=== PATIENT | female | born 1995 | race Caucasian/White ===

== ENCOUNTER 2020-11-11 14:35 | Outpatient (CLI) | payer BC ==
[2020-11-11 15:15] VITALS: BP 131/79; PULSE 90; RESP 18; TEMP 97.5
--- NOTE | 2020-11-17 09:05 | P.MSEPDOC ---
Presenting Problems - Arrival Data Date of Arrival on Unit: 11/11/20 Time of Arrival on Unit: 14:20 Mode of Transport: Ambulatory - Complaint OB-Reason for Admission/Chief Complaint: Rule Out PROM Comment: pt states leaking fluid at 1310 today Medical History - Information : 1 Para: 0 Term: 0 : 0 Abortions: Spontaneous or Elective: 0 Number of Living Children: 0 - Gestational Age Gestational Age by FROILAN (wks/days): 34 Weeks and 6 Days Review of Systems - Review of Systems Constitutional: No problems Breast: No problems ENT: No problems Cardiovascular: No problems Respiratory: No problems Gastrointestinal: No problems Genitourinary: No problems Musculoskeletal: No problems Neurological: No problems Skin: No problems Vital Signs - Temperature Temperature: 97.5 F Temperature Source: Temporal Artery Scan - Pulse Right Brachial Pulse Rate: 90 Pulse Assessment Method: Automatic Cuff - Respirations Respiratory Rate: 18 Oxygen Delivery Method: Room Air O2 Sat by Pulse Oximetry: 98 - Blood Pressure Right Arm Blood Pressure: 131/79 Blood Pressure Mean: 96 Blood Pressure Source: Automatic Cuff Medical Screen Scoring - Cervical Exam Dilation (cm): 0 Effacement (%): 0 Station: -3 Membranes: Intact - Uterine Contractions Frequency From (mins): 0 - Assessment - Baby A Baseline FHR: 120 Heart Rate - NICHD Category: Category I (Normal) Physician Notification - Physician Notified Physician Notified Date: 11/11/20 Physician Notified Time: 14:50 Physician: Kenya Pak Order Received: Yes - Notification Comment Comment: discharge with instruction Maternal Triage Index - Maternal Triage Index Presenting for scheduled procedure w/no complaint: No - Stat/Priority 1 Stat Priority 1: No - Urgent/Priority 2 Urgent Priority 2: No - Prompt/Priority 3 Prompt Priority 3: Yes Criteria Met for Priority 3: 34 6/7 complaint of leaking fluid Disposition - Disposition OB Disposition: Physician follow up in office, Triage, Discharge to home, Written follow up instructions reviewed Discharge Date: 11/11/20 Discharge Time: 15:00 I agree with the RN Medical Screening Exam: Yes Case reviewed; plan agreed upon as documented in EMR&OBIX.: Yes Comments: Patient was not seen or examined by me Diagnosis: FALSE LABOR BEFORE 37 COMPLETED WEEKS OF GEST, THIRD TRI
== END 2020-11-11 15:00 | disposition home or self-care (01) ==
LOC: FBPOP 14:35
PROVIDERS: ATTEND Obstetrics & Gynecology
DX: O47.03 False labor before 37 completed weeks of gestation, third trimester (principal); Z3A.34 34 weeks gestation of pregnancy
CPT/HCPCS: 59025; 84112; 99213

== ENCOUNTER 2020-12-18 06:05 | Inpatient (IN) | payer BC, OTHER ==
[2020-12-18] MEDS ORDERED: TERBUTALINE 1 MG/ML VIAL SQ PRN (06:17)
[2020-12-18] MEDS ORDERED: OXYTOCIN 10 UNIT/ML 1 ML VIAL IM PRN (06:17)
[2020-12-18] MEDS ORDERED: CARBOPROST TROMETHAMINE 250 MCG/ML 1 ML AMP IM PRN (06:17)
[2020-12-18] MEDS ORDERED: LIDOCAINE 0.5% (PF) 5 MG/ML (50 ML SDV) SQ PRN (06:17)
[2020-12-18] MEDS ORDERED: METHYLERGONOVINE 0.2 MG/ML 1 ML AMP IM PRN (06:17)
[2020-12-18] MEDS: OXYTOCIN 30 UNITS/500 ML NS 30 UNIT in SALINE 1 500ML.BAG IV SCH ×2 (06:32→23:32)
[2020-12-18] MEDS: LACTATED RINGERS 1,000 ML IV SCH ×3 (06:32→23:31)
[2020-12-18 07:12] LABS: Basophils # (A) 0.1 k/uL (0-0.2); Basophils % (A) 1 %; Eosinophils # (A) 0.2 k/uL (0-0.7); Eosinophils % (A) 2 %; HCT 37.8 % (34.0-46.0); Lymphocytes % (A) 20 %; MCH 34.3 pg (25.0-35.0); MCHC 34.2 g/dL (31.0-37.0); MCV 100.1 fL (80.0-100.0); Macrocytosis Slight; Mean Platelet Volume 9.1; Monocytes # (A) 0.6 k/uL (0-1.0); Monocytes % (A) 6 %; Neutrophils # (A) 7.1 k/uL (1.3-7.7); Neutrophils % (A) 70 %; Platelet Count 215 k/uL (150-450); RBC 3.78 m/uL (3.80-5.40); RDW 14.2 % (11.5-15.5); WBC 10.2 k/uL (3.8-10.6)
[2020-12-18] MEDS ORDERED: fentaNYL (PF) 50 MCG/ML 5 ML AMP ONE (09:24)
[2020-12-18] MEDS ORDERED: SODIUM CHLORIDE 0.9% 100 ML BAG ONE (09:24)
[2020-12-18] MEDS ORDERED: ROPIVACAINE 5MG/ML 20ML VIAL ONE (09:24)
--- NOTE | 2020-12-18 12:01 | P.HPOB ---
History of Present Illness H&P Date: 12/18/20 Chief Complaint: Here for elective induction of labor This is a 25-year-old female 1 para 0 EDC 12/17/2020 at 40 and one sevenths weeks' gestation who presents this morning for induction of labor with favorable cervix. She is actually having spontaneous contractions. Fetus is been active throughout the . She denies fluid leakage or vaginal bleeding. Past medical history is essentially negative. Past surgical history wisdom teeth extracted. Current medications vitamins daily, baby aspirin daily. ALLERGIES none known. Family history significant for hypertension heart disease and ovarian cancer. Social history patient is never been a smoker, she is , she denies alcohol or drug use. 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 Could be strep cultures, hepatitis B surface antigen, VDRL testing, Pap smear, urine culture, HIV testing, group B strep cultures all negative. One-hour Glucola 92. On exam patient is 5 foot 6 inches, 193 pounds, blood pressure 124/85 on admission, vital signs are stable and she is afebrile. Cervix at time of this dictation is 6 cm dilated, 80% effaced, -1 station, vertex presentation. Artificial amniorrhexis earlier today revealed clear fluid. heart rate is consistent with reactive NST. Contractions are current every 2-3 minutes apart, oxytocin at 15 milliunits, epidural placed, patient comfortable. Impression: 40 and one sevenths weeks intrauterine , here for induction of labor, all signs reassuring. Plan: Continue close maternal and surveillance was an as needed. Anticipate normal spontaneous vaginal delivery. Review of Systems Constitutional: Reports as per HPI Past Medical History History of Any Multi-Drug Resistant Organisms: None Reported Additional Past Surgical History / Comment(s): wisdom teeth removal Past Anesthesia/Blood Transfusion Reactions: No Reported Reaction Smoking Status: Never smoker Medications and Allergies Home Medications Medication Instructions Recorded Confirmed Type Aspirin [Children's Aspirin] 81 mg PO DAILY 11/11/20 12/18/20 History Pnv No.95/Ferrous Fum/Folic AC 1 each PO DAILY 11/11/20 12/18/20 History [ Multivitamin Tablet] Allergies Allergy/AdvReac Type Severity Reaction Status Date / Time Latex, Natural Rubber Allergy Rash/Hives Verified 11/11/20 14:42 Exam Vital Signs Temp Pulse Resp BP Pulse Ox 12/18/20 07:12 97.6 F 89 16 134/93 99 Intake and Output 12/17/20 12/18/20 12/18/20 22:59 06:59 14:59 Other: Weight 87.543 kg 87.543 kg See dictation under HPI please Results Result Diagrams: 12/18/20 06:25 Abnormal Lab Results - Last 24 Hours (Table) 12/18/20 Range/Units 06:25 RBC 3.78 L (3.80-5.40) m/uL MCV 100.1 H (80.0-100.0) fL Assessment and Plan Assessment: 40 and one sevenths weeks intrauterine , here for induction of labor, in active labor. All signs reassuring. Plan: Continue close maternal and surveillance. Continue oxytocin per protocol. Epidural placed, patient comfortable. Anticipate normal spontaneous vaginal delivery. Time with Patient: Less than 30
[2020-12-18] MEDS ORDERED: ACETAMINOPHEN 40 MG/1.25 ML ORAL.SYRG PO PRN (21:18)
[2020-12-18] MEDS ORDERED: LIDOCAINE (PF) 10 MG/ML 2 ML VIAL SQ PRN (21:18)
[2020-12-18] MEDS ORDERED: SUCROSE 24% 2 ML AMP PO PRN (21:18)
--- NOTE | 2020-12-18 21:18 | P.PROBDLV ---
Vaginal Delivery Note - . Vaginal Delivery Note: This is a 25-year-old white female 1 para 0 EDC 12/17/2020 at 40 and one sevenths weeks' gestation. Patient presented this morning for induction with favorable cervix. Group B strep cultures negative. Blood type A-. Rubella status immune. Please see dictated history and physical for details. Oxytocin was started, artificial amniorrhexis revealed clear fluid. Ultimately an epidural was requested and placed per the anesthesia staff. Patient progressed through the first stage of labor became completely dilated at 1912 hours. She began the second stage of labor at that time. With excellent maternal expulsive efforts, and multiple position changes, ultimately the perineal body was prepped and draped in usual sterile fashion. 's head delivered occiput anterior and he restituted accordingly. There was no nuchal cord noted. The left or anterior shoulder was gently delivered from underneath the pubic symphysis at which time the oropharynx, nasopharynx, and external nares were all bulb suctioned. Patient was officially delivered of a liveborn male at 3 hours. Umbilical cord was doubly clamped and ligated, he was handed to waiting nurses for evaluation where scores of 8 and 9 at one and 5 minutes respectively were given. The placenta delivered spontaneously. I suspected it was not fully intact, therefore a brief manual exploration was performed in a remaining cotyledon was removed. The uterus is then massaged. Inspection of the cervix, vagina, perineum, and. Rectal areas revealed a small second-degree perineal laceration. This was repaired in the usual fashion using 3-0 repeat suture. Infant weighed 7 lbs. 14 oz. or 3575 g. All sponge needle and enhancement counts are correct. Estimated blood loss 350 mL's. Patient and her family are allowed to begin the bonding experience in the LDR. The are requesting circumcision for their infant son.
[2020-12-18] MEDS ORDERED: diphenhydrAMINE 50 MG CAP PO PRN (21:37)
[2020-12-18] MEDS ORDERED: ACETAMINOPHEN TAB 325 MG TAB PO PRN (21:37)
[2020-12-18] MEDS ORDERED: HYDROCORTISONE 2.5% RECTAL CREAM 30 GM TUBE RECTAL PRN (21:37)
[2020-12-18] MEDS ORDERED: SIMETHICONE 80 MG CHEWABLE PO PRN (21:37)
[2020-12-18] MEDS ORDERED: BENZOCAINE/MENTHOL SPRAY 1 GM/SPRAY AEROSOL TOPICAL PRN (21:37)
[2020-12-18] MEDS ORDERED: LANOLIN CREAM 5 GM TUBE TOPICAL PRN (21:37)
[2020-12-18] MEDS ORDERED: diphenhydrAMINE 25 MG CAP PO PRN (21:37)
[2020-12-18] MEDS ORDERED: diphenhydrAMINE 50 MG/ML 1 ML VIAL IVP PRN ×2 (21:37)
[2020-12-18] MEDS ORDERED: ZOLPIDEM 5 MG TAB PO PRN (21:37)
[2020-12-18] MEDS ORDERED: OXYTOCIN 30 UNITS/500 ML NS 30 UNIT in SALINE 1 500ML.BAG IV SCH (21:45)
[2020-12-18] MEDS: IBUPROFEN 600 MG TAB PO PRN (21:52)
[2020-12-19 07:25] LABS: Basophils % (A) 0 %; Eosinophils % (A) 0 %; HCT 34.9 % (34.0-46.0); HGB 11.4 gm/dL (11.4-16.0); Lymphocytes # (A) 2.1 k/uL (1.0-4.8); Lymphocytes % (A) 10 %; MCH 32.5 pg (25.0-35.0); MCHC 32.6 g/dL (31.0-37.0); MCV 99.6 fL (80.0-100.0); Macrocytosis Slight; Mean Platelet Volume 8.7; Monocytes # (A) 1.2 k/uL (0-1.0); Monocytes % (A) 6 %; Neutrophils # (A) 17.7 k/uL (1.3-7.7); Neutrophils % (A) 83 %; Platelet Count 179 k/uL (150-450); RBC 3.51 m/uL (3.80-5.40); RDW 14.3 % (11.5-15.5); WBC 21.3 k/uL (3.8-10.6)
[2020-12-19] MEDS: IBUPROFEN 600 MG TAB PO PRN ×2 (07:44→15:16)
[2020-12-19] MEDS: SENNOSIDES-DOCUSATE SODIUM 1 EACH TAB PO SCH ×2 (07:45→19:32)
--- NOTE | 2020-12-19 08:08 | P.DS ---
Providers Date of admission: 12/18/20 06:05 Expected date of discharge: 12/19/20 Attending physician: Kenya Pak Primary care physician: Stated None Hospital Course: This is a 25-year-old white female 1 para 0 EDC 12/17/2020 who presented at 40 and one sevenths weeks for induction with favorable cervix. Fetus active throughout the . Blood type A-, rubella status immune, group B strep cultures negative. Please see my dictated history and physical for details. Oxytocin was started and titrated. Epidural was placed per her request. She went on to deliver vaginally a liveborn male infant with scores of 8 and 9 at one and 5 minutes respectively. Infant weighed 7 lbs. 14 oz. or 3575 g. There was a small second-degree perineal laceration easily repaired. Estimated blood loss 350 mL's. Please see dictated delivery note for details. This morning the patient is doing well. She is ambulating and passing flatus. Vital signs are stable and she is afebrile. Extremities reveal +1 edema. Fundus is firm and in the midline, symmetric and 18 week size. Breasts are not engorged. circumcision has been performed. Plan is for discharge home later this evening 1 patient is 24 hours . She is judged to be in good condition for discharge home. She will follow-up with me in the office in 6 weeks. I have reminded her no intercourse, tampons or douching. She will use [id number] Advil or Aleve, or Motrin as needed for pain. She will call with any fevers shakes or chills, foul smelling or copious lochia, with the passage of large blood clots, with any pain not alleviated by [id number]-oxebxes products, or indeed with any concerns. We have briefly discussed contraceptive options and we will discuss this further in the office. Assessment: Doing well post day #1 Patient Condition at Discharge: Good Plan - Discharge Summary Discharge Rx Participant: No New Discharge Prescriptions: No Action Aspirin [Children's Aspirin] 81 mg PO DAILY Pnv No.95/Ferrous Fum/Folic AC [ Multivitamin Tablet] 1 each PO DAILY Discharge Medication List Aspirin [Children's Aspirin] 81 mg PO DAILY 11/11/20 [History] Pnv No.95/Ferrous Fum/Folic AC [ Multivitamin Tablet] 1 each PO DAILY 11/11/20 [History] Follow up Appointment(s)/Referral(s): Kenya Pka MD [STAFF PHYSICIAN] - 6 Weeks
[2020-12-19] MEDS ORDERED: ACETAMINOPHEN TAB 500 MG TAB PO PRN (18:27)
[2020-12-20] MEDS: SENNOSIDES-DOCUSATE SODIUM 1 EACH TAB PO SCH (07:51)
[2020-12-20] MEDS: IBUPROFEN 600 MG TAB PO PRN (07:51)
[2020-12-20 08:05] VITALS: RESP 16
--- NOTE | 2020-12-20 09:45 | P.DS ---
Providers Date of admission: 12/18/20 06:05 Expected date of discharge: 12/20/20 Attending physician: Kenya Pak Primary care physician: Stated None Hospital Course: Patient was discharged yesterday, but spent the night due to elevated bilirubin levels in her . Blood pressures over the night mildly elevated, 120 to 140s over 70s to 90s. Patient had a mild headache that has resolved. This morning she appears quite well and is anxious for discharge home. We will check AST, ALTs and uric acid this morning. Patient will likely be discharged home later this evening. Plans as previously discussed and dictated. Thank you for this addendum to the discharge plan. Assessment: Doing well post day #2 Patient Condition at Discharge: Good Plan - Discharge Summary Discharge Rx Participant: No New Discharge Prescriptions: No Action Aspirin [Children's Aspirin] 81 mg PO DAILY Pnv No.95/Ferrous Fum/Folic AC [ Multivitamin Tablet] 1 each PO DAILY Discharge Medication List Aspirin [Children's Aspirin] 81 mg PO DAILY 11/11/20 [History] Pnv No.95/Ferrous Fum/Folic AC [ Multivitamin Tablet] 1 each PO DAILY 11/11/20 [History] Follow up Appointment(s)/Referral(s): Kenya Pak MD [STAFF PHYSICIAN] - 6 Weeks Discharge Disposition: HOME SELF-CARE
[2020-12-20 10:12] LABS: Uric Acid 7.9 mg/dL (3.7-7.4)
[2020-12-20 17:36] VITALS: BP 128/79; PULSE 88; TEMP 97.6
== END 2020-12-20 19:14 | disposition home or self-care (01) | DRG 807 ==
LOC: 4FBP 06:05
PROVIDERS: ADMIT Obstetrics & Gynecology; ATTEND Obstetrics & Gynecology
PROC: 3E0R3NZ Introduction of Analgesics, Hypnotics, Sedatives into Spinal Canal, Percutaneous Approach (ICD-10-PCS; principal; 2020-12-18)
PROC: 0KQM0ZZ Repair Perineum Muscle, Open Approach (ICD-10-PCS; principal; 2020-12-18)
PROC: 10E0XZZ Delivery of Products of Conception, External Approach (ICD-10-PCS; principal; 2020-12-18)
PROC: 10907ZC Drainage of Amniotic Fluid, Therapeutic from Products of Conception, Via Natural or Artificial Opening (ICD-10-PCS; principal; 2020-12-18)
PROC: 00HU33Z Insertion of Infusion Device into Spinal Canal, Percutaneous Approach (ICD-10-PCS; principal; 2020-12-18)
DX: O70.1 Second degree perineal laceration during delivery (principal); Z37.0 Single live birth; R03.0 Elevated blood-pressure reading, without diagnosis of hypertension; Z79.82 Long term (current) use of aspirin; Z80.41 Family history of malignant neoplasm of ovary; Z82.49 Family history of ischemic heart disease and other diseases of the circulatory system; Z3A.40 40 weeks gestation of pregnancy; Z91.040 Latex allergy status
CPT/HCPCS: 84450; 84460; 84550; 85025; 86850; 86900; 86901

== ENCOUNTER → 2021-05-30 | Outpatient (CLI) | payer BC, OTHER | END | disposition home or self-care (01) | LOC: LABWHC1 18:55 | PROVIDERS: ATTEND Emergency Medicine | DX: Z20.822 Contact with and (suspected) exposure to COVID-19 (principal) | CPT/HCPCS: 87635 ==

== ENCOUNTER 2022-08-08 04:07 | Emergency (ER) | payer OTHER, BC ==
[2022-08-08 04:15] VITALS: BP 139/77; PULSE 96; RESP 18; TEMP 98.2
[2022-08-08] MEDS ORDERED: IBUPROFEN 600 MG TAB PO STA (04:37)
[2022-08-08] MEDS ORDERED: ACETAMINOPHEN TAB 500 MG TAB PO STA (04:37)
[2022-08-08] MEDS ORDERED: AMOXIC-POT CLAV 875-125MG 1 EACH TAB PO STA (04:37)
--- NOTE | 2022-08-08 05:31 | ED ---
General Adult HPI - General Chief complaint: Animal Bite Stated complaint: [facility],DOG BITE Time Seen by Provider: 08/08/22 04:30 Source: patient, RN notes reviewed, old records reviewed Mode of arrival: ambulatory Limitations: no limitations - History of Present Illness Initial comments: Patient is a 19-year-old female presents emergency Department following a dog bite. Works at a [employer], and was bit in the left cheek and jaw by the dog. Has lacerations to her upper lip as well as over her left cheek. No active bleeding. Up-to-date on tetanus. The dog was up-to-date on vaccinations including rabies. No ALLERGIES for the patient other than latex. His no other acute complaints at this time. Presents for further evaluation. Endorses some swelling and pain over the left cheek and lip but otherwise no acute complaints. No fevers. No obvious bleeding. No blood thinners. No other acute complaints. Is a further evaluation. Denies hitting her head or loss of consciousness. - Related Data Home Medications Medication Instructions Recorded Confirmed Aspirin [Children's Aspirin] 81 mg PO DAILY 11/11/20 12/18/20 Pnv No.95/Ferrous Fum/Folic AC 1 each PO DAILY 11/11/20 12/18/20 [ Multivitamin Tablet] Previous Rx's Medication Instructions Recorded Amoxic-Pot Clav 875-125Mg 1 tab PO Q12HR 10 Days #20 tab 08/08/22 [Augmentin 875-125] Allergies Allergy/AdvReac Type Severity Reaction Status Date / Time Latex, Natural Rubber Allergy Rash/Hives Verified 08/08/22 04:12 Review of Systems ROS Statement: Those systems with pertinent positive or pertinent negative responses have been documented in the HPI. Review of Systems: CONST: Denies fever EYES: Denies blurry vision ENT: Denies nasal congestion C/V: Denies Chest pain RESP: Denies shortness of breath GI: Denies abdominal pain : Denies dysuria SKIN: Endorses dog bite MSK: Denies joint pain. NEURO: Denies headache ROS Other: All systems not noted in ROS Statement are negative. Past Medical History Past Medical History: No Reported History History of Any Multi-Drug Resistant Organisms: None Reported Additional Past Surgical History / Comment(s): wisdom teeth removal Past Anesthesia/Blood Transfusion Reactions: No Reported Reaction Past Psychological History: No Psychological Hx Reported Smoking Status: Never smoker Past Alcohol Use History: None Reported Past Drug Use History: None Reported General Exam - General Exam Comments Initial Comments: General: Appears in no acute distress. HEAD: Normal with no signs of head trauma. EYES: EOMI. ENT: Hearing grossly intact. RESPIRATORY: No respiratory distress. C/V: Regular rate and rhythm. ABD: Abdomen is nondistended. EXT: No obvious deformity. SKIN: Patient has a laceration to the upper lip as well as a small abrasion to the upper lip that does not cross the vermilion border. Patient also small puncture wounds to the left cheek with no obvious discharge or bleeding. No lacerations that require closure at this time. NEURO: Alert and oriented. Limitations: no limitations Course Vital Signs 08/08/22 04:12 Temperature 98.2 F Pulse Rate 96 Respiratory 18 Rate Blood Pressure 139/77 O2 Sat by Pulse 98 Oximetry Medical Decision Making - Medical Decision Making Was pt. sent in by a medical professional or institution (, PA, BRANCH SERVICE SPECIALIST, urgent care, hospital, or residential...) When possible be specific @ -No Did you speak to anyone other than the patient for history (EMS, parent, family, police, friend...)? What history was obtained from this source @ -No Did you review nursing and triage notes (agree or disagree)? Why? @ -I reviewed and agree with nursing and triage notes Were old charts reviewed (outside hosp., previous admission, EMS record, old EKG, old radiological studies, urgent care reports/EKG's, residential records)? Report findings @ -No old charts were reviewed Differential Diagnosis (chest pain, altered mental status, abdominal pain women, abdominal pain men, vaginal bleeding, weakness, fever, dyspnea, syncope, headache, dizziness, GI bleed, back pain, seizure, CVA, palpatations, mental health, musculoskeletal)? @ -Dog bite, laceration, abrasion. This list is not all inclusive EKG interpreted by me (3pts min.). @ -None done X-rays interpreted by me (1pt min.). @ -None done CT interpreted by me (1pt min.). @ -None done U/S interpreted by me (1pt. min.). @ -None done What testing was considered but not performed or refused? (CT, X-rays, U/S, labs)? Why? @ -None What meds were considered but not given or refused? Why? @ -None Did you discuss the management of the patient with other professionals (professionals i.e. , PA, BRANCH SERVICE SPECIALIST, lab, RT, psych nurse, school social worker, granite block paver, teacher, airport operations officer, social work case manager)? Give summary @ -No Was smoking cessation discussed for >3mins.? @ -No Was critical care preformed (if so, how long)? @ -No Were there social determinants of health that impacted care today? How? (Homelessness, low income, unemployed, alcoholism, drug addiction, transportation, low edu. Level, literacy, decrease access to med. care, [employer], rehab)? @ -No Was there de-escalation of care discussed even if they declined (Discuss DNR or withdrawal of care, Hospice)? DNR status @ -No What co-morbidities impacted this encounter? (DM, HTN, Smoking, COPD, CAD, Cancer, CVA, ARF, Chemo, Hep., AIDS, mental health diagnosis, sleep apnea, morbid obesity)? @ -None Was patient admitted / discharged? Hospital course, mention meds given and rout e, prescriptions, significant lab abnormalities, going to OR and other pertinent info. @ -Based on patient's presentation and physical exam, presents with a dog bite to the face. Injury does not cross the vermilion border. Does have a laceration of the upper lip that does not require closure at this time as is somewhat gaping but not actively bleeding. There is on the inside of her lip. There is a small abrasion located near the vermilion border on the left side of her upper lip but this also does not require closure. The multiple puncture wounds over the left cheek did not require closure. I discussed this with the patient. Tetanus is up-to-date. We will start her on antibiotics. She'll be given Tylenol and Motrin for pain control. She was in agreement this plan. Strict return precautions discussed. I will provide the patient with a prescription for Augmentin. I instructed the patient to follow up with their PCP in the next 1-3 days. I explained that the patient should return to the emergency department if they experience any worsening symptoms. Strict return precautions were discussed with the patient. The patient expressed understanding of these instructions. I answered all questions that the patient had. The patient was discharged home in good condition with their prescriptions and follow up information. Undiagnosed new problem with uncertain prognosis? @ -No Drug Therapy requiring intensive monitoring for toxicity (Heparin, Nitro, Insulin, Cardizem)? @ -No Were any procedures done? @ -No Diagnosis/symptom? @ -Dog bite Acute, or Chronic, or Acute on Chronic? @ -Acute Uncomplicated (without systemic symptoms) or Complicated (systemic symptoms)? @ -Uncomplicated Side effects of treatment? @ -No Exacerbation, Progression, or Severe Exacerbation? @ -No Poses a threat to life or bodily function? How? (Chest pain, [place], [place], pneumonia, PE, COPD, DKA, ARF, appy, cholecystitis, CVA, Diverticulitis, Homicidal, Suicidal, threat to staff... and all critical care pts) @ -No Disposition Clinical Impression: Dog bite Disposition: HOME SELF-CARE Condition: Good Instructions (If sedation given, give patient instructions): Animal Bite (ED) Prescriptions: Amoxic-Pot Clav 875-125Mg [Augmentin 875-125] 1 tab PO Q12HR 10 Days #20 tab Is patient prescribed a controlled substance at d/c from ED?: No Referrals: Olga Farrell MD [Primary Care Provider] - 1-2 days Time of Disposition: 05:24
== END 2022-08-08 06:20 | disposition home or self-care (01) ==
LOC: EC 04:07
DX: S01.511A Laceration without foreign body of lip, initial encounter (principal); S01.431A Puncture wound without foreign body of right cheek and temporomandibular area, initial encounter; Z91.040 Latex allergy status; W54.0XXA Bitten by dog, initial encounter
CPT/HCPCS: 99282